=== PATIENT | female | born 1960 | race Caucasian/White ===

== ENCOUNTER 2023-09-26 06:31 | Day surgery (SDC) | payer BC ==
[~2023-09-26 06:31] MED LIST: Lactated Ringers 1,000 ML IV SCH
[2023-09-26] MEDS ORDERED: HYDROmorphone 1 MG/ML Syringe IVPUSH PRN (07:13)
[2023-09-26] MEDS ORDERED: Ondansetron 4 MG/2 ML SDV IVPUSH PRN (07:13)
[2023-09-26] MEDS ORDERED: droPERidol 5 MG/2 ML SDV IVPUSH PRN (07:13)
[2023-09-26] MEDS ORDERED: Naloxone 0.4 MG/ML SDV IVPUSH PRN (07:13)
[2023-09-26] MEDS ORDERED: fentaNYL 50 MCG/ML SDV IVPUSH PRN (07:13)
[2023-09-26] MEDS ORDERED: Metoclopramide 10 MG/2 ML SDV IVPUSH PRN (07:13)
[2023-09-26] MEDS ORDERED: Morphine 2 MG/ML SYRINGE IVPUSH PRN (07:13)
[2023-09-26] MEDS ORDERED: Albuterol 0.083% 2.5 MG/3 ML Neb Soln NEB PRN (07:13)
[2023-09-26] MEDS ORDERED: fentaNYL 100 MCG/2 ML SDV ONE ×3 (07:30→08:47)
[2023-09-26] MEDS ORDERED: Ropivacaine 0.5% 5 MG/ML 30 ML SDV ONE (07:35)
[2023-09-26] MEDS ORDERED: propofoL 0 ML ONE (07:57)
[2023-09-26] MEDS ORDERED: ceFAZolin 1 GM in Sodium Chloride 0.9% 50 ML IV ONE (08:00)
[2023-09-26] MEDS ORDERED: propofoL 50 ML ONE (08:12)
[2023-09-26] MEDS ORDERED: ceFAZolin 1 GM Vial ONE (08:26)
[2023-09-26] MEDS ORDERED: Ondansetron 4 MG/2 ML SDV ONE (08:34)
[2023-09-26] MEDS ORDERED: Dexamethasone 4 MG/ML 5 ML MDV ONE (08:34)
[2023-09-26] MEDS ORDERED: Propofol 200 MG/20 ML SDV ONE (08:48)
[2023-09-26 11:40] VITALS: BP 135/86; PULSE 71
== END 2023-09-26 11:05 | disposition home or self-care (01) ==
LOC: MW.SDS 06:31
PROVIDERS: ATTEND Orthopaedic Surgery
DX: S82.142A Displaced bicondylar fracture of left tibia, initial encounter for closed fracture (principal); M06.9 Rheumatoid arthritis, unspecified; M20.42 Other hammer toe(s) (acquired), left foot; I10 Essential (primary) hypertension; Z79.899 Other long term (current) drug therapy; W22.8XXA Striking against or struck by other objects, initial encounter
CPT/HCPCS: 27535; 64445; 64447; 76000; J0131; J0690; J1100; J2405; J2704; J2795; J3010; J7120

== ENCOUNTER 2025-07-17 22:23 | Emergency (ER) | payer BC, OTHER ==
[2025-07-17] MEDS: Acetaminophen/HYDROcodone 325-5 MG Tab PO ONE (23:39)
[2025-07-18 00:46] VITALS: BP 153/93; PULSE 96
== END 2025-07-18 00:44 | disposition home or self-care (01) ==
LOC: MW.ED 22:23
DX: S52.502A Unspecified fracture of the lower end of left radius, initial encounter for closed fracture (principal); S52.602A Unspecified fracture of lower end of left ulna, initial encounter for closed fracture; I10 Essential (primary) hypertension; M19.90 Unspecified osteoarthritis, unspecified site; Z79.899 Other long term (current) drug therapy; W22.8XXA Striking against or struck by other objects, initial encounter
CPT/HCPCS: 29125; 73070; 73110; 73130; 99283; A9270